=== PATIENT | male | born 1945 | race Hispanic/Latino ===

== ENCOUNTER 2021-07-25 13:55 | Inpatient (IN) | payer MEDICARE ==
[~2021-07-25 13:55] MED LIST: Iopamidol 370 76% 100 ML VIAL ONE
[2021-07-25 14:41] LABS: #Eosinphils 0.1 thou/uL (0.0-0.7); #Lymphocytes 1.6 thou/uL (1.20-3.40); #Monocytes 0.4 thou/uL (0.11-0.59); #Neutrophils 7.4 thou/uL (1.40-6.50); %Basophils 0.1 % (0.0-1.0); %Lymphocytes 16.5 % (21.0-51.0); %Monocytes 4.7 % (0.0-10.0); %Neutrophils 77.8 % (42.0-75.0); Hemoglobin 12.8 g/dL (14.0-18.0); Mean Corpuscular HGB CONC 32.3 g/dL (32.0-36.0); Mean Corpuscular Hemoglobin 30.3 pg (27.0-31.0); Mean Platelet Volume 8.2 fL (7.4-10.4); Platelet Count 317 thou/uL (130-400); RBC Distribution Width 11.7 % (11.5-14.5); Red Blood Cell (RBC) Count 4.23 mill/uL (4.70-6.10); White Blood Cell (WBC) Count 9.5 thou/uL (4.8-10.8)
[2021-07-25] MEDS ORDERED: Ondansetron PF 4 MG/2 ML Vial ONE (14:51)
[2021-07-25 15:02] LABS: ALT (SGPT) 24 U/L (8-55); AST (SGOT) 24 U/L (5-34); Alkaline Phosphatase 35 U/L (40-110); Anion Gap 11 mmol/L (10-20); BUN (Urea Nitrogen) 25 mg/dL (8.4-25.7); Bilirubin, Total 0.4 mg/dL (0.2-1.2); Calc. Creatinine Clearance 0 mL/min (70-130); Calcium 10.4 mg/dL (7.8-10.44); Carbon Dioxide 25 mmol/L (23-31); Chloride 102 mmol/L (98-107); Globulin 3.8 g/dL (2.4-3.5); Glucose 176 mg/dL (83-110); Magnesium 1.9 mg/dL (1.6-2.6); Potassium 5.1 mmol/L (3.5-5.1); Protein, Total 7.8 g/dL (5.8-8.1); Sodium 133 mmol/L (136-145)
[2021-07-25] MEDS ORDERED: Dextrose 5% in Water 1,000 ML IV PRN (17:54)
[2021-07-25] MEDS ORDERED: Dextrose 50% Abboject 50 ML SYRINGE SLOW IVP PRN (17:54)
[2021-07-25 18:07] LABS: Bacteria/HPF None Seen HPF (None Seen); Bilirubin Negative (Negative); Blood, Urine Negative (Negative); Clarity Clear (Clear); Glucose, Urine (Dipstick) Normal (Negative); Ketone, Urine Negative (Negative); Leukocyte Negative Leu/uL (Negative); Nitrite Negative (Negative); Protein, Urine (Dipstick) 300 mg/dL (Neg-Trace); Specific Gravity, Urine 1.024 (1.002-1.036); Squamous Epithelial None Seen HPF (0-3); Urobilinogen Normal mg/dL (Less than 2); WBC/HPF 0-3 HPF (0-3); pH, Urine 7.5 (5.0-9.0)
[2021-07-25] MEDS ORDERED: Ondansetron PF 4 MG/2 ML Vial IVP PRN (18:11)
[2021-07-25 18:21] LABS: Troponin I 0.011 ng/mL (< 0.028)
[2021-07-25] MEDS ORDERED: Enoxaparin Sodium 40 MG/0.4 ML SYRINGE SC SCH (18:30)
[2021-07-25] MEDS ORDERED: Acetaminophen 325 MG TAB ONE (18:52)
[2021-07-25] MEDS ORDERED: Lactated Ringer's 1,000 ML IV SCH (19:30)
[2021-07-25 19:42] LABS: SARS-CoV-2 NAA Rapid Test Not Detected (NotDetected)
[2021-07-25 20:45] LABS: Troponin I 0.012 ng/mL (< 0.028)
[2021-07-25 21:07] VITALS: BMI 28.2
[2021-07-25] MEDS: Acetaminophen 325 MG TAB PO PRN (21:23)
[2021-07-26 04:22] LABS: #Eosinphils 0.1 thou/uL (0.0-0.7); #Lymphocytes 2.7 thou/uL (1.20-3.40); #Monocytes 0.6 thou/uL (0.11-0.59); #Neutrophils 5.3 thou/uL (1.40-6.50); %Basophils 0.3 % (0.0-1.0); %Eosinophils 1.7 % (0.0-10.0); %Lymphocytes 30.7 % (21.0-51.0); %Monocytes 6.5 % (0.0-10.0); %Neutrophils 60.9 % (42.0-75.0); Hemoglobin 11.9 g/dL (14.0-18.0); Mean Corpuscular HGB CONC 33.3 g/dL (32.0-36.0); Mean Corpuscular Hemoglobin 31.9 pg (27.0-31.0); Mean Corpuscular Volume 95.8 fL (78.0-98.0); Mean Platelet Volume 7.7 fL (7.4-10.4); Platelet Count 263 thou/uL (130-400); RBC Distribution Width 11.8 % (11.5-14.5); Red Blood Cell (RBC) Count 3.72 mill/uL (4.70-6.10); White Blood Cell (WBC) Count 8.8 thou/uL (4.8-10.8)
[2021-07-26 04:43] LABS: Anion Gap 7 mmol/L (10-20); BUN (Urea Nitrogen) 23 mg/dL (8.4-25.7); Calc. Creatinine Clearance 57 mL/min (70-130); Calcium 10.1 mg/dL (7.8-10.44); Carbon Dioxide 26 mmol/L (23-31); Chloride 104 mmol/L (98-107); Glucose 87 mg/dL (83-110); Potassium 4.3 mmol/L (3.5-5.1); Sodium 133 mmol/L (136-145)
[2021-07-26] MEDS ORDERED: Magnesium 2 GM/50 ML 2 GM in Premix Bag 1 BAG IVPB SCH (08:00)
[2021-07-26] MEDS ORDERED: Magnesium Sulfate 2 GM in Sodium Chloride 0.9% 100 ML IVPB SCH (08:00)
[2021-07-26] MEDS: Acetaminophen 325 MG TAB PO PRN ×3 (08:56→21:03)
[2021-07-26] MEDS: Aspirin 81 mg Enteric Coated Tablet PO SCH (08:56)
[2021-07-26] MEDS: Rosuvastatin 20 MG TAB PO SCH (08:57)
[2021-07-26] MEDS: Tamsulosin HCl 0.4 MG CAP PO SCH (08:57)
[2021-07-26] MEDS ORDERED: Enoxaparin Sodium 40 MG/0.4 ML SYRINGE SC SCH (09:00)
[2021-07-26] MEDS ORDERED: Carvedilol 6.25 MG TAB PO SCH ×2 (09:00→17:00)
[2021-07-26] MEDS ORDERED: Lisinopril 20 MG TAB PO SCH ×2 (09:00)
[2021-07-26] MEDS: hydrALAZINE 20 MG/ML VIAL SLOW IVP PRN (17:10)
[2021-07-26] MEDS: Enoxaparin Sodium 40 MG/0.4 ML SYRINGE SC SCH (21:02)
[2021-07-26] MEDS: Lisinopril 20 MG TAB PO SCH (21:03)
[2021-07-26] MEDS ORDERED: Loratadine 10 MG TAB PO PRN (22:18)
[2021-07-27 05:56] LABS: Anion Gap 14 mmol/L (10-20); BUN (Urea Nitrogen) 19 mg/dL (8.4-25.7); Calc. Creatinine Clearance 66 mL/min (70-130); Calcium 10.5 mg/dL (7.8-10.44); Carbon Dioxide 19 mmol/L (23-31); Cardiac Risk 3.7 (Less than 4.5); Chloride 107 mmol/L (98-107); Cholesterol 131 mg/dl (< 200 Desired); Glucose 87 mg/dL (83-110); HDL Cholesterol 35 mg/dL (>60 Neg Risk); LDL Cholesterol, Calculated 50 mg/dL; Potassium 4.7 mmol/L (3.5-5.1); Sodium 135 mmol/L (136-145); Triglycerides 230 mg/dL (Less than 150)
[2021-07-27] MEDS: Acetaminophen 325 MG TAB PO PRN ×2 (07:30→15:05)
[2021-07-27] MEDS ORDERED: Aspirin 81 mg Enteric Coated Tablet PO SCH (07:30)
[2021-07-27] MEDS ORDERED: Lisinopril 20 MG TAB PO SCH (07:30)
[2021-07-27] MEDS ORDERED: Electrolyte Replacement Protocol 1 EACH FS PRN (07:45)
[2021-07-27] MEDS ORDERED: Magnesium 2 GM/50 ML 2 GM in Premix Bag 1 BAG IVPB SCH (09:00)
[2021-07-27] MEDS: Rosuvastatin 20 MG TAB PO SCH (09:54)
[2021-07-27] MEDS: Carvedilol 3.125 MG TAB PO SCH ×2 (09:54→18:07)
[2021-07-27] MEDS: Aspirin 81 mg Enteric Coated Tablet PO SCH (09:54)
[2021-07-27] MEDS: Lisinopril 20 MG TAB PO SCH ×2 (09:54→20:26)
[2021-07-27] MEDS: Tamsulosin HCl 0.4 MG CAP PO SCH (09:56)
[2021-07-27] MEDS: HumaLOG 300 UNITS/3 ML VIAL SC PRN (18:07)
[2021-07-27] MEDS: Enoxaparin Sodium 40 MG/0.4 ML SYRINGE SC SCH (20:26)
[2021-07-28] MEDS: Acetaminophen 325 MG TAB PO PRN ×4 (03:00→21:49)
[2021-07-28 04:58] LABS: #Eosinphils 0.3 thou/uL (0.0-0.7); #Lymphocytes 2.8 thou/uL (1.20-3.40); #Monocytes 0.7 thou/uL (0.11-0.59); #Neutrophils 4.8 thou/uL (1.40-6.50); %Eosinophils 3.2 % (0.0-10.0); %Lymphocytes 32.7 % (21.0-51.0); %Monocytes 7.6 % (0.0-10.0); %Neutrophils 56.4 % (42.0-75.0); Hemoglobin 12.3 g/dL (14.0-18.0); Mean Corpuscular HGB CONC 33.2 g/dL (32.0-36.0); Mean Corpuscular Hemoglobin 31.3 pg (27.0-31.0); Mean Corpuscular Volume 94.1 fL (78.0-98.0); Mean Platelet Volume 7.9 fL (7.4-10.4); Platelet Count 288 thou/uL (130-400); RBC Distribution Width 11.7 % (11.5-14.5); Red Blood Cell (RBC) Count 3.93 mill/uL (4.70-6.10); White Blood Cell (WBC) Count 8.5 thou/uL (4.8-10.8)
[2021-07-28 05:31] LABS: Anion Gap 5 mmol/L (10-20); BUN (Urea Nitrogen) 31 mg/dL (8.4-25.7); Calc. Creatinine Clearance 40 mL/min (70-130); Calcium 9.9 mg/dL (7.8-10.44); Carbon Dioxide 27 mmol/L (23-31); Chloride 105 mmol/L (98-107); Glucose 89 mg/dL (83-110); Potassium 4.1 mmol/L (3.5-5.1); Sodium 133 mmol/L (136-145)
[2021-07-28] MEDS ORDERED: metFORMIN 500 MG TAB PO SCH (08:00)
[2021-07-28] MEDS: Tamsulosin HCl 0.4 MG CAP PO SCH (08:15)
[2021-07-28] MEDS: Lisinopril 20 MG TAB PO SCH (08:15)
[2021-07-28] MEDS: Carvedilol 3.125 MG TAB PO SCH ×2 (08:15→15:34)
[2021-07-28] MEDS: Aspirin 81 mg Enteric Coated Tablet PO SCH (08:15)
[2021-07-28] MEDS: Rosuvastatin 20 MG TAB PO SCH (08:15)
[2021-07-28] MEDS ORDERED: Sodium Chloride 0.9% 500 ML IV SCH (09:30)
[2021-07-28] MEDS: HumaLOG 300 UNITS/3 ML VIAL SC PRN (12:26)
[2021-07-28 12:36] LABS: Anion Gap 17 mmol/L (10-20); BUN (Urea Nitrogen) 29 mg/dL (8.4-25.7); Calc. Creatinine Clearance 40 mL/min (70-130); Calcium 9.9 mg/dL (7.8-10.44); Carbon Dioxide 18 mmol/L (23-31); Chloride 105 mmol/L (98-107); Glucose 128 mg/dL (83-110); Potassium 4.7 mmol/L (3.5-5.1); Sodium 135 mmol/L (136-145)
[2021-07-28] MEDS ORDERED: Amlodipine 5 MG TAB PO SCH (14:15)
[2021-07-28] MEDS ORDERED: Bisacodyl 5 MG TAB PO PRN (15:40)
[2021-07-28] MEDS ORDERED: Melatonin 3 MG TAB PO PRN (15:41)
[2021-07-28] MEDS ORDERED: Bisacodyl 5 MG TAB PO SCH (15:45)
[2021-07-28] MEDS: Enoxaparin Sodium 40 MG/0.4 ML SYRINGE SC SCH (21:48)
[2021-07-28] MEDS: hydrALAZINE 20 MG/ML VIAL SLOW IVP PRN (22:17)
[2021-07-29] MEDS: hydrALAZINE 20 MG/ML VIAL SLOW IVP PRN (03:58)
[2021-07-29] MEDS: Acetaminophen 325 MG TAB PO PRN ×2 (04:05→08:41)
[2021-07-29 04:52] LABS: Anion Gap 12 mmol/L (10-20); BUN (Urea Nitrogen) 26 mg/dL (8.4-25.7); Calc. Creatinine Clearance 50 mL/min (70-130); Calcium 10.2 mg/dL (7.8-10.44); Carbon Dioxide 21 mmol/L (23-31); Chloride 108 mmol/L (98-107); Glucose 93 mg/dL (83-110); Potassium 4.3 mmol/L (3.5-5.1); Sodium 137 mmol/L (136-145)
[2021-07-29] MEDS: Carvedilol 3.125 MG TAB PO SCH (08:37)
[2021-07-29] MEDS: Tamsulosin HCl 0.4 MG CAP PO SCH (08:37)
[2021-07-29] MEDS: Aspirin 81 mg Enteric Coated Tablet PO SCH (08:37)
[2021-07-29] MEDS: Rosuvastatin 20 MG TAB PO SCH (08:37)
[2021-07-29] MEDS ORDERED: Amlodipine 10 MG TAB PO SCH ×2 (09:00)
[2021-07-29] MEDS ORDERED: Amlodipine 5 MG TAB PO SCH ×2 (09:00)
[2021-07-29 12:13] VITALS: BP 142/57; TEMP 98
== END 2021-07-29 12:15 | disposition home or self-care (01) | DRG 309 ==
LOC: EDSEX 13:55 → ERS 13:55 → ERHOLD 16:13 → 2NO 20:14
PROVIDERS: ADMIT Hospitalist; ATTEND Internal Medicine
DX: R00.1 Bradycardia, unspecified (principal); E87.1 Hypo-osmolality and hyponatremia; I12.9 Hypertensive chronic kidney disease with stage 1 through stage 4 chronic kidney disease, or unspecified chronic kidney disease; E11.22 Type 2 diabetes mellitus with diabetic chronic kidney disease; I25.10 Atherosclerotic heart disease of native coronary artery without angina pectoris; E78.5 Hyperlipidemia, unspecified; Z20.822 Contact with and (suspected) exposure to COVID-19; N18.30 Chronic kidney disease, stage 3 unspecified; N40.1 Benign prostatic hyperplasia with lower urinary tract symptoms; Z95.1 Presence of aortocoronary bypass graft; Z95.5 Presence of coronary angioplasty implant and graft; Z98.890 Other specified postprocedural states; Z79.82 Long term (current) use of aspirin; Z79.84 Long term (current) use of oral hypoglycemic drugs; Z79.899 Other long term (current) drug therapy
CPT/HCPCS: 36415; 36416; 70450; 71045; 71275; 80048; 80053; 80061; 81003; 81015; 83735; 84436; 84443; 84484; 85025; 85379; 93005; 93306; 94760; 96374; J0360; J1650; J1815; J2405; J3475; J7030; J7120; Q9967; U0002

== ENCOUNTER 2021-08-26 09:12 | Outpatient (CLI) | payer MEDICARE | END 2021-08-26 09:13 | disposition home or self-care (01) | LOC: BICULT 09:12 | PROVIDERS: ATTEND Urology | DX: N40.1 Benign prostatic hyperplasia with lower urinary tract symptoms (principal); R35.1 Nocturia; N28.1 Cyst of kidney, acquired | CPT/HCPCS: 76770 ==

== ENCOUNTER 2022-01-22 08:21 | Emergency (ER) | payer MEDICARE | END 2022-01-22 08:59 | disposition home or self-care (01) | LOC: ERS 08:21 | DX: M62.838 Other muscle spasm (principal); E11.9 Type 2 diabetes mellitus without complications; I10 Essential (primary) hypertension; E78.5 Hyperlipidemia, unspecified; Z79.899 Other long term (current) drug therapy; Z79.84 Long term (current) use of oral hypoglycemic drugs | CPT/HCPCS: 99283 ==